=== PATIENT | male | born 1985 | race Caucasian/White ===

== ENCOUNTER 2017-02-16 09:31 | Emergency (ER) | payer SELFPAY ==
[~2017-02-16] VITALS: Ht 177.8 cm; Wt 70.0 kg
[2017-02-16 09:34] VITALS: BP 167/90; PULSE 118; RESP 16; TEMP 98.4; O2SAT 98
[2017-02-16 10:04] VITALS: BP 114/85; PULSE 100; RESP 20; O2SAT 97
[2017-02-16 10:59] LABS: BASOPHIL # 0.2 TH/MM3 (0-0.2); EOSINOPHIL # 0.5 TH/MM3 (0-0.4); EOSINOPHIL % 5.6 % (0.0-4.0); HEMATOCRIT 43.9 % (39.0-51.0); HEMO FLAGS DIFF FINAL; LYMPH % 37.3 % (9.0-44.0); LYMPHOCYTE # 3.2 TH/MM3 (1.0-4.8); MEAN CELL VOLUME 93.7 FL (80.0-100.0); MEAN CORPUSCULAR HEMOGLOBIN 32.2 PG (27.0-34.0); MEAN CORPUSCULAR HGB CONC 34.3 % (32.0-36.0); MONO % 7.9 % (0.0-8.0); NEUT % 47.2 % (16.0-70.0); PLATELET COUNT 293 TH/MM3 (150-450); RED BLOOD COUNT 4.69 MIL/MM3 (4.50-5.90); RED CELL DISTRIBUTION WIDTH 13.1 % (11.6-17.2); WHITE BLOOD COUNT 8.5 TH/MM3 (4.0-11.0)
[2017-02-16 11:19] LABS: BICARBONATE 23.5 MEQ/L (21.0-32.0); POTASSIUM 3.3 MEQ/L (3.5-5.1)
--- NOTE | 2017-02-16 11:23 | PD ---
HPI Chief Complaint: OD/ Ingestion Time Seen by Provider: 09:55 Travel History International Travel<30 days: No Contact w/Intl Traveler<30days: No Traveled to known affect area: No History of Present Illness HPI 31yo M with polysubstance abuse here requesting detox and heroin and alcohol. Pt said [facility] was full so he decided to come here. Denies any fever, chest pain, sob, n/v, abdominal pain, focal weakness or numbness. Pt said last alcohol was this morning. PFSH Social History Alcohol Use: Yes Tobacco Use: Yes Allergies-Medications (Allergen,Severity, Reaction): Coded Allergies: No Known Allergies (Unverified , 02/16/17) Reported Meds & Prescriptions Reported Meds & Active Scripts Active No Active Prescriptions or Reported Medications Review of Systems Except as stated in HPI: all other systems reviewed are Neg Physical Exam Narrative GENERAL: 31yo M not in distress. SKIN: Focused skin assessment warm/dry. HEAD: Atraumatic. Normocephalic. EYES: Pupils equal and round. No scleral icterus. No injection or drainage. ENT: No nasal bleeding or discharge. Mucous membranes pink and moist. NECK: Trachea midline. No JVD. CARDIOVASCULAR: Regular rate and rhythm. No murmur appreciated. RESPIRATORY: No accessory muscle use. Clear to auscultation. Breath sounds equal bilaterally. GASTROINTESTINAL: Abdomen soft, non-tender, nondistended. MUSCULOSKELETAL: No obvious deformities. No clubbing. No cyanosis. No edema. NEUROLOGICAL: Awake and alert. No obvious cranial nerve deficits. Motor grossly within normal limits. Normal speech. PSYCHIATRIC: Appropriate mood and affect; insight and judgment normal. Data Data Last Documented VS Vital Signs Date Time Temp Pulse Resp B/P (MAP) Pulse Ox O2 Delivery O2 Flow Rate FiO2 02/16/17 10:04 100 20 114/85 (95) 97 Room Air 02/16/17 09:34 98.4 Orders Orders Complete Blood Count With Diff (02/16/17 10:28) Basic Metabolic Panel (Bmp) (02/16/17 10:28) Alcohol (Ethanol) (02/16/17 10:28) Drug Screen, Random Urine (02/16/17 10:28) Labs Laboratory Tests Test 02/16/17 10:33 02/16/17 10:37 Urine Opiates Screen NEG Urine Barbiturates Screen NEG Urine Amphetamines Screen NEG Urine Benzodiazepines Screen POS Urine Cocaine Screen NEG Urine Cannabinoids Screen NEG White Blood Count 8.5 TH/MM3 Red Blood Count 4.69 MIL/MM3 Hemoglobin 15.1 GM/DL Hematocrit 43.9 % Mean Corpuscular Volume 93.7 FL Mean Corpuscular Hemoglobin 32.2 PG Mean Corpuscular Hemoglobin Concent 34.3 % Red Cell Distribution Width 13.1 % Platelet Count 293 TH/MM3 Mean Platelet Volume 7.2 FL Neutrophils (%) (Auto) 47.2 % Lymphocytes (%) (Auto) 37.3 % Monocytes (%) (Auto) 7.9 % Eosinophils (%) (Auto) 5.6 % Basophils (%) (Auto) 2.0 % Neutrophils # (Auto) 4.0 TH/MM3 Lymphocytes # (Auto) 3.2 TH/MM3 Monocytes # (Auto) 0.7 TH/MM3 Eosinophils # (Auto) 0.5 TH/MM3 Basophils # (Auto) 0.2 TH/MM3 CBC Comment DIFF FINAL Differential Comment Blood Urea Nitrogen 8 MG/DL Creatinine 1.03 MG/DL Random Glucose 112 MG/DL Calcium Level 7.8 MG/DL Sodium Level 144 MEQ/L Potassium Level 3.3 MEQ/L Chloride Level 111 MEQ/L Carbon Dioxide Level 23.5 MEQ/L Anion Gap 10 MEQ/L Estimat Glomerular Filtration Rate 84 ML/MIN Ethyl Alcohol Level 212 MG/DL [facility] Medical Decision Making Medical Screen Exam Complete: Yes Emergency Medical Condition: Yes Differential Diagnosis Polysubstance abuse vs. medical clearance Narrative Course 31yo M with polysubstance abuse here for detox because [facility] does not have room today. Pt does not appear to be tremulous on exam and has no tongue fasciculation. Labs reviewed, no leukocytosis. H/H normal. K:3.3, pt tolerating PO and can replace orally. Blood alcohol 212. Utox positive for benzodiazepine. Instructed pt to follow up with [facility] as he is not is active withdrawal now. Diagnosis Primary Impression: Polysubstance (excluding opioids) dependence Patient Instructions: General Instructions Departure Forms: Tests/Procedures Additional Instructions: Please follow up with Melecio Pimentel today. Return to the ED if symptoms worsen. Med/Other Pt SpecificInfo: No Change to Meds Scripts No Active Prescriptions or Reported Meds Disposition: 01 DISCHARGE HOME Condition: Stable PrattKarenMonalisa DO Feb 16, 2017 11:23
== END 2017-02-16 13:03 | disposition home or self-care (01) ==
LOC: NEPC 09:31
DX: F19.20 Other psychoactive substance dependence, uncomplicated (principal); Z72.0 Tobacco use
CPT/HCPCS: 80048; 80307; 85025; 99283